=== PATIENT | female | born 1985 | race African-American/Black ===

== ENCOUNTER 2023-05-12 10:15 | Emergency (ER) | payer MEDICAID ==
[~2023-05-12] VITALS: Ht 167.6 cm; Wt 66.0 kg
[2023-05-12 10:22] VITALS: O2SAT 99
[2023-05-12 12:08] LABS: HEMATOCRIT. 33.9 % (36.0-48.0); MEAN CORPUSCULAR HEMOGLOBIN 29.2 pg (28.0-32.0); MEAN CORPUSCULAR HGB CONC 32.4 g/dL (31.0-37.0); MEAN CORPUSCULAR VOLUME 90.2 fL (81.0-99.0); MEAN PLATELET VOLUME 9.6 fl (7.4-10.4); PLATELET 182 x1000/uL (130-400); RED BLOOD CELL COUNT 3.76 mill/uL (4.2-5.4); RED CELL DISTRIBUTION WIDTH 13.9 % (11.6-14.6); WHITE BLOOD COUNT 2.9 x1000/uL (4.5-11.0)
[2023-05-12 12:18] LABS: DIFFERENTIAL COMMENT 1
[2023-05-12 12:29] LABS: ACETAMINOPHEN < 2 ug/mL (10-30); CALCIUM 9.1 mg/dL (8.7-10.4); CARBON DIOXIDE 25 mEq/L (21-32); CREATININE 0.6 mg/dL (0.6-1.0); GLUCOSE 98 mg/dL (70-105); SODIUM 140 mEq/L (136-145); UREA NITROGEN BLOOD 13 mg/dL (9-23)
[2023-05-12 12:35] LABS: CHLORIDE 108 mEq/L (98-107); ETHANOL BLOOD < 10 mg/dL (<10); POTASSIUM 3.3 mEq/L (3.5-5.1)
[2023-05-12 12:45] LABS: HCG SCREEN NEGATIVE
[2023-05-12] MEDS ORDERED: POTASSIUM CHLORIDE 20MEQ/PACKET PO NR (13:30)
[2023-05-12 15:45] LABS: *AMPHETAMINES SCREEN URINE NEGATIVE (NEGATIVE); *BARBITURATES SCREEN URINE NEGATIVE (NEGATIVE); *BENZODIAZEPINES SCREEN URINE NEGATIVE (NEGATIVE); *COCAINE SCREEN URINE NEGATIVE (NEGATIVE); CANNABINOID URINE SCREEN NEGATIVE (NEGATIVE); ECSTASY MDMA SCREEN URINE NEGATIVE (NEGATIVE); METHADONE URINE SCREEN Neg (NEGATIVE); OPIATES URINE SCREEN NEGATIVE (NEGATIVE); PHENCYCLIDINE URINE SCREEN PRESUMTIVE POSITIVE (NEGATIVE)
[2023-05-12 16:52] LABS: PLATELET ESTIMATE NORMAL
[2023-05-12 18:30] VITALS: BP 138/88; PULSE 75; RESP 20
== END 2023-05-12 18:38 ==
LOC: EDBD 10:15 → ER 10:15
DX: F23 Brief psychotic disorder (principal); T40.995A Adverse effect of other psychodysleptics [hallucinogens], initial encounter; Y92.89 Other specified places as the place of occurrence of the external cause
CPT/HCPCS: 36415; 80048; 80305; 80307; 80320; 80329; 84703; 85025; 99283; G0480